=== PATIENT | female | born 2000 | race Two or more races ===

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

== ENCOUNTER 2019-02-03 05:47 | Day surgery (SDC) | payer OTHER ==
[2019-02-03] VITALS (9 sets, daily range): BP systolic 98–128; BP diastolic 63–74; PULSE 60–80; RESP 11–21; Ht 147.3 cm; Wt 56.8 kg
[~2019-02-03] VITALS: Ht 147.3 cm; Wt 56.8 kg
[~2019-02-03 05:47] MED LIST: ONDA4TAB14 PO
[2019-02-03] MEDS ORDERED: PROPOFOL 20 ML ONE ×2 (07:25→08:17)
[2019-02-03] MEDS ORDERED: CEFAZOLIN 1 GM INJ ONE (07:25)
[2019-02-03] MEDS ORDERED: MIDAZOLAM 1 MG/ML 2 ML INJ ONE (07:26)
[2019-02-03] MEDS ORDERED: FENTAnyl 50 MCG/ML VIAL ONE (07:26)
[2019-02-03] MEDS ORDERED: ONDANSETRON 4 MG INJ IV PRN (07:30)
[2019-02-03] MEDS ORDERED: FENTAnyl 50 MCG/ML VIAL IV PRN ×3 (07:30)
[2019-02-03] MEDS ORDERED: OXYCODONE/ACETAMINOPHEN (5/325) TAB PO PRN ×2 (07:30)
[2019-02-03] MEDS ORDERED: MEPERIDINE 25 MG INJ IV PRN (07:30)
[2019-02-03] MEDS ORDERED: DEXAMETHASONE 4 MG/ML 1 ML INJ ONE (07:39)
[2019-02-03] MEDS ORDERED: BUPIVACAINE 0.5% (SDV) 30 ML INJ ONE (07:39)
[2019-02-03] MEDS ORDERED: LIDOCAINE 2% (MDV) 20 ML INJ ONE (07:39)
[2019-02-03] MEDS ORDERED: KETOROLAC 30 MG INJ ONE (08:17)
== END 2019-02-03 10:24 | disposition home or self-care (01) ==
LOC: SDS 05:47
PROVIDERS: ATTEND Podiatrist Primary Podiatric Medicine
DX: M20.12 Hallux valgus (acquired), left foot (principal); M21.612 Bunion of left foot
CPT/HCPCS: 28299; J0690; J1100; J1885; J2250; J3010; L3260; Z7512; Z7610